=== PATIENT | male | born 1970 | race Caucasian/White ===

== ENCOUNTER 2020-10-08 08:03 | Outpatient (REF) | payer MEDICAID, OTHER, SELFPAY ==
--- NOTE | ~2020-10-08 | US_ITS ---
EXAMINATION: US COMPLETE ABDOMEN WITH LIVER ELASTOGRAPHY CLINICAL INFORMATION: Fatty liver. COMPARISON: Previous abdominal ultrasound and CT of the abdomen and pelvis February 2019 TECHNIQUE: Real-time imaging of the abdominal viscera. Noninvasive ultrasound liver fibrosis assessment is performed using Mario ElastPQ point quantification shear wave elastography (pSWE) with a C5-2 MHz transducer. Multiple elastography samples are obtained. FINDINGS: PANCREAS: Not well visualized due to bowel gas. ABDOMINAL AORTA: The proximal, middle, and distal aortic segments are normal in caliber. INFERIOR VENA CAVA: Visualized portions are normal. LIVER: Liver echotexture is increased suggestive of fatty infiltration. No focal liver lesion is seen. The liver is normal in size and contour. The right lobe measures 14 cm in length. The left lobe measures 10.5 cm in length. Portal flow is normal/hepatopedal. Shear wave liver elastography median stiffness is 1.2 m/s (reference: normal median stiffness is 1.3 m/s or less). IQR/median stiffness to assess sampling precision is 0.19 (reference: good quality data set is IQR/median stiffness of 0.15 or less). GALLBLADDER: Normal. The gallbladder is physiologically distended without evidence of stones, sludge, polyps, wall thickening or pericholecystic fluid. COMMON BILE DUCT: Normal in caliber measuring 0.3 cm in diameter. RIGHT KIDNEY: There are several right renal cysts. The largest measures 1.7 x 1.4 x 1.6 cm in the lower pole and is minimally complex with single thin septation. There are multiple small stones. No hydronephrosis. The kidney measures 11.6 cm in maximum dimension. LEFT KIDNEY: There are several left renal cysts. The largest measures 1.9 x 1.4 x 2.1 cm in the upper pole. There are multiple small stones. No hydronephrosis. No renal calculi or focal parenchymal lesions. The kidney measures 11.3 cm in maximum dimension. SPLEEN: Normal. The spleen measures 8.4 cm in maximum dimension. FREE FLUID: None. US/US abdomen comp w elastography IMPRESSION: 1. Echogenic liver suggestive of fatty infiltration. Bilateral renal cysts. Bilateral renal stones. Nonvisualization of the pancreas. 2. Liver elastography: Slightly limited due to sampling error. Normal liver stiffness. REFERENCE: Society of Radiologists in Ultrasound Liver Stiffness Thresholds (2019): LIVER STIFFNESS THRESHOLDS: *Liver Stiffness equal or less than 1.3 m/s: High probability of being normal. *Liver Stiffness less than 1.7 m/s: In the absence of other known clinical signs, rules out compensated advanced chronic liver disease. *Liver Stiffness 1.7-2.1 m/s: Suggestive of compensated advanced chronic liver disease but need further test for confirmation. *Liver Stiffness over 2.1 m/s: Rules in compensated advanced chronic liver disease. *Liver Stiffness over 2.4 m/s: Suggestive of clinically significant portal hypertension. QUALITY OF DATA SET: *IQR/Median value equal or less than 0.15 implies a quality data set. *IQR/Median value over 0.15 implies a poor quality data set. SIGNIFICANT CHANGE FROM PRIOR EXAM: Significant change if liver stiffness measurement is 10% or greater from prior exam. OTHER CONSIDERATIONS: The stage of liver fibrosis may be overestimated in the setting of acute hepatitis, liver inflammation, elevated liver function tests, hepatic vascular congestion, obstructive cholestasis, non-fasting state, and infiltrative diseases such as amyloidosis and lymphoma. In some patients with NAFLD, the liver stiffness thresholds for compensated advanced chronic liver disease may be lower. In causes other than viral hepatitis and NAFLD, liver stiffness thresholds are not well established.
== END 2020-10-08 08:04 | disposition home or self-care (01) ==
LOC: HO.US 08:03
PROVIDERS: Visit Provider Internal Medicine
DX: K76.0 Fatty (change of) liver, not elsewhere classified (principal)
CPT/HCPCS: 76705; 76981

== ENCOUNTER → 2021-12-31 08:10 | Outpatient (REF) | payer MEDICAID, OTHER, SELFPAY ==
--- NOTE | ~2021-12-31 | NM_ITS ---
EXAMINATION: BILIARY TRACT IMAGING STUDY CLINICAL INDICATION: Right upper quadrant abdominal pain. COMPARISON: Abdominal ultrasound done on 10/08/2020. TECHNIQUE: Scintillation camera images were obtained over the abdomen for an observation of 60 minutes following the intravenous administration of 5 millicuries technetium 99m mebrofenin. FINDINGS: There is good concentration of activity in the liver by 5 minutes post injection. Biliary activity is well visualized by 15 minutes, and there is good visualization of small bowel activity by 15 minutes. The gallbladder is well visualized by 30 minutes. NM/NM hepatobiliary wo pharm IMPRESSION: Normal biliary scan. Visualization of the gallbladder is evidence of a patent cystic duct and strong evidence against the diagnosis of acute cholecystitis. The common bile duct is patent. Liver function appears normal.
== END ==
LOC: HO.NUCMED 08:10
PROVIDERS: Visit Provider Internal Medicine
DX: R10.11 Right upper quadrant pain (principal)
CPT/HCPCS: 78226; A9537